=== PATIENT | female | born 1995 | race Hispanic/Latino ===

== ENCOUNTER 2023-08-03 06:00 | Inpatient (IN) | payer BC ==
[2023-08-03] MEDS ORDERED: HYDROcodone/Acetaminophen 5/325 mg Tablet PO PRN ×4 (12:22→22:55)
[2023-08-03] MEDS ORDERED: fentaNYL 50 mcg/mL 1 mL Vial SLOW IVP PRN (12:22)
[2023-08-03] MEDS ORDERED: Lactated Ringer's 1,000 ML IV SCH (12:22)
[2023-08-03] MEDS ORDERED: Ibuprofen 800 MG TAB PO PRN (12:22)
[2023-08-03] MEDS ORDERED: Promethazine HCl 25 MG/ML VIAL IM PRN ×2 (12:22→15:18)
[2023-08-03] MEDS ORDERED: Lidocaine 1% (PF) 30 ML VIAL SC PRN (12:22)
[2023-08-03] MEDS ORDERED: Ondansetron PF 4 MG/2 ML Vial IVP PRN ×3 (12:22→22:55)
[2023-08-03] MEDS ORDERED: Oxytocin 30 units/NS 500 ML 500 ML IV SCH ×4 (12:22→22:55)
[2023-08-03] MEDS ORDERED: hydrALAZINE 20 MG/ML VIAL SLOW IVP PRN ×2 (12:22→22:55)
[2023-08-03] MEDS ORDERED: Oxytocin 30 units/NS 500 ML 500 ML ONE (13:07)
[2023-08-03 13:41] VITALS: BMI 32.5
[2023-08-03 13:57] LABS: Hematocrit 34.1 % (34.9-44.5); Hemoglobin 11.1 g/dL (12.0-15.5); Mean Corpuscular HGB CONC 32.6 g/dL (32.0-36.0); Mean Corpuscular Hemoglobin 25.8 pg (27.0-33.0); Mean Corpuscular Volume 79.3 fl (81.6-98.3); Mean Platelet Volume 10.9 fl (7.4-10.4); Platelet Count 171 10x3/uL (150-450); RBC Distribution Width 16.2 % (11.5-14.5); White Blood Cell (WBC) Count 8.5 10x3/uL (3.5-10.5)
[2023-08-03 14:49] LABS: HBSAg Index 0.19 S/CO (0-0.99); Hep B Surf Ag - L&D Non-Reactive S/CO (NonReactive)
[2023-08-03 14:51] LABS: Syphilis Antibody Nonreactive (Nonreactive); Syphilis Antibody Index 0.07 S/CO (<1.00 Non-Reactive)
[2023-08-03] MEDS ORDERED: fentaNYL/Ropivacaine Epidural 100 ML ONE (15:15)
[2023-08-03] MEDS ORDERED: Acetaminophen 325 MG TAB PO PRN (15:18)
[2023-08-03] MEDS ORDERED: diphenhydrAMINE 50 MG/ML VIAL IVP PRN (15:18)
[2023-08-03] MEDS ORDERED: Naloxone HCl 0.4 mg/ml Vial IVP PRN ×2 (15:18)
[2023-08-03] MEDS ORDERED: Lactated Ringer's 500 ML IV PRN (15:18)
[2023-08-03] MEDS ORDERED: ePHEDrine Sulfate 50 MG/10 ML VIAL SLOW IVP PRN (15:18)
[2023-08-03] MEDS ORDERED: Moisturizing Cream (Eucerin) 113 GM JAR TOP PRN (15:18)
[2023-08-03] MEDS ORDERED: Communication Order-Pharmacy FS SCH (15:30)
[2023-08-03] MEDS ORDERED: fentaNYL 2 mcg/Ropivacaine 0.2% Epidural 100 ML CADD EPIDURAL SCH (15:30)
[2023-08-03] MEDS ORDERED: Misoprostol 200 MCG TAB ONE (19:02)
[2023-08-03] MEDS ORDERED: Methylergonovine 0.2 MG/ML VIAL ONE (19:02)
[2023-08-03] MEDS ORDERED: Bisacodyl 10 MG SUPP PR PRN (22:55)
[2023-08-03] MEDS ORDERED: Boostrix 0.5 ML (Tdap) VIAL (>/=7 yrs of age) IM ONE (22:55)
[2023-08-03] MEDS ORDERED: Lanolin Ointment 7 GM TUBE TOP PRN (22:55)
[2023-08-03] MEDS ORDERED: Milk Of Magnesia 30 ML UDCUP PO PRN (22:55)
[2023-08-03] MEDS ORDERED: Benzocaine-Menthol 82.5 ML CAN TOP PRN (22:55)
[2023-08-03] MEDS ORDERED: diphenhydrAMINE 25 MG CAP PO PRN (22:55)
[2023-08-03] MEDS ORDERED: Preparation H Ointment 28 GM TUBE PR PRN (22:55)
[2023-08-03] MEDS ORDERED: Docusate 100 MG CAP PO SCH (23:15)
[2023-08-03] MEDS: Ibuprofen 800 MG TAB PO SCH (23:39)
[2023-08-04] MEDS: Ferrous Sulfate 325 MG TAB PO SCH ×2 (07:59→17:38)
[2023-08-04] MEDS: Ibuprofen 800 MG TAB PO SCH ×2 (08:24→16:25)
[2023-08-04] MEDS ORDERED: Prenatal Vitamin 1 TAB PO SCH (09:00)
[2023-08-04] MEDS ORDERED: Docusate 100 MG CAP PO SCH (09:00)
[2023-08-04 17:28] VITALS: BP 122/75; TEMP 98.2
== END 2023-08-04 22:00 | disposition home or self-care (01) | DRG 807 ==
LOC: CSHLD 12:13 → CSHPP 22:35
PROVIDERS: ADMIT Obstetrics & Gynecology; ATTEND Obstetrics & Gynecology
PROC: 10E0XZZ Delivery of Products of Conception, External Approach (ICD-10-PCS; principal; 2023-08-03)
PROC: 0KQM0ZZ Repair Perineum Muscle, Open Approach (ICD-10-PCS; 2023-08-03)
DX: O42.02 Full-term premature rupture of membranes, onset of labor within 24 hours of rupture (principal); Z37.0 Single live birth; Z3A.39 39 weeks gestation of pregnancy; O70.1 Second degree perineal laceration during delivery; O99.284 Endocrine, nutritional and metabolic diseases complicating childbirth; E03.9 Hypothyroidism, unspecified; Z79.899 Other long term (current) drug therapy
CPT/HCPCS: 36415; 85027; 86780; 86850; 86900; 86901; 87340; J2590